=== PATIENT | male | born 1955 | race Hispanic/Latino ===

== ENCOUNTER 2016-11-21 14:23 | Outpatient (CLI) | payer BC ==
--- NOTE | 2016-11-21 15:23 | XRay Report ---
LEFT ANKLE, 3 views: History: Left ankle pain. Normal bone mineralization. No acute fracture or significant joint pathology is appreciated at the ankle. There is moderate diffuse soft tissue swelling. There is a large calcification overlying the expected position of the Achilles tendon which probably represents chronic injury. Please correlate with patient's history. IMPRESSION: Soft tissue findings as described. No evidence for acute bony injury.
== END 2016-11-21 14:24 | disposition home or self-care (01) ==
LOC: SPVIMAG 14:23
PROVIDERS: ATTEND Family Medicine
DX: M25.872 Other specified joint disorders, left ankle and foot (principal)